=== PATIENT | male | born 1965 | race Two or more races ===

== ENCOUNTER 2022-12-21 18:13 | Inpatient (IN) | payer MEDICAID ==
[~2022-12-21] VITALS: Ht 162.6 cm; Wt 57.2 kg
[2022-12-22 00:08] LABS: CHLORIDE 89 mEq/L (98-107)
[2022-12-22 00:11] LABS: BASOPHILS % 1.3 % (0.0-2.0); EOSINOPHILS % 0.3 % (0.0-5.0); HEMATOCRIT. 34.3 % (42.0-52.0); HEMOGLOBIN. 11.5 g/dL (14.0-18.0); LYMPHOCYTES % 42.8 % (20.0-50.0); MEAN CORPUSCULAR HEMOGLOBIN 34.3 pg (28.0-32.0); MEAN CORPUSCULAR VOLUME 102.3 fL (80.0-94.0); MEAN PLATELET VOLUME 8.3 fl (7.4-10.4); MONOCYTES % 11.1 % (2.0-8.0); NEUTROPHILS % 44.5 % (40.0-76.0); PLATELET 214 x1000/uL (130-400); RED BLOOD CELL COUNT 3.35 mill/uL (4.7-6.1); RED CELL DISTRIBUTION WIDTH 15.8 % (11.6-14.6)
[2022-12-22 00:20] LABS: ETHANOL BLOOD 244 mg/dL
[2022-12-22] MEDS ORDERED: ACETAMINOPHEN 500MG TABLET PO ONE (01:45)
[2022-12-22] MEDS ORDERED: POTASSIUM CHLORIDE 20MEQ TABLET SR PO ONE (02:00)
[2022-12-22] MEDS ORDERED: SODIUM CHLORIDE 0.9% 500 ML IV ONE (02:00)
[2022-12-22] MEDS ORDERED: ASPIRIN 325MG EC TABLET PO ONE (05:45)
[2022-12-22] MEDS ORDERED: POTASSIUM CHLORIDE 20MEQ TABLET SR PO NR (11:00)
[2022-12-22] MEDS ORDERED: ENOXAPARIN 60MG/0.6ML SYR SUBCUT NR (11:15)
[2022-12-22 13:33] LABS: INR 1.1; PROTHROMBIN TIME 11.6 sec (9.6-11.0)
[2022-12-22 14:28] VITALS: BP 110/78
[2022-12-22 16:00] VITALS: BP 148/84
[2022-12-22] MEDS ORDERED: IPRATROPIUM/ALBUTEROL 0.5-3(2.5)MG/3ML NEB NEB PRN (16:00)
[2022-12-22] MEDS ORDERED: ALBUTEROL (0.083%) 2.5MG/3ML NEB HHN PRN ×2 (16:00→16:15)
[2022-12-22] MEDS ORDERED: CLONIDINE 0.1MG TABLET PO PRN (16:00)
[2022-12-22] MEDS ORDERED: IPRATROPIUM BROMIDE (0.02%) 0.5MG/2.5ML NEB HHN PRN ×2 (16:00→16:15)
[2022-12-22] MEDS ORDERED: LORAZEPAM 2MG/ML CPJ IV PRN ×2 (16:00)
[2022-12-22] MEDS ORDERED: ACETAMINOPHEN 325MG TABLET PO PRN (16:00)
[2022-12-22] MEDS ORDERED: ENOXAPARIN 40MG/0.4ML SYR SUBCUT SCH (16:00)
[2022-12-22] MEDS ORDERED: ONDANSETRON HCL 4MG/2ML INJ IV PRN (16:00)
[2022-12-22] MEDS: SODIUM CHLORIDE 0.9% 1,000 ML IV SCH (16:39)
[2022-12-22] MEDS ORDERED: FOLIC ACID 1 MG, THIAMINE HCL 100 MG, MVI, ADULT NO.1 10 ML in DEXTROSE 5% WATER 1,000 ML IV ONE ×4 (17:00)
[2022-12-22] MEDS ORDERED: FAMOTIDINE 20MG/2ML VIAL IV SCH (17:00)
[2022-12-22 18:03] LABS: HEMATOCRIT. 32.3 % (42.0-52.0); HEMOGLOBIN. 10.8 g/dL (14.0-18.0); MEAN CORPUSCULAR HEMOGLOBIN 34.3 pg (28.0-32.0); MEAN CORPUSCULAR VOLUME 102.6 fL (80.0-94.0); MEAN PLATELET VOLUME 9.1 fl (7.4-10.4); PLATELET 201 x1000/uL (130-400); RED BLOOD CELL COUNT 3.15 mill/uL (4.7-6.1); RED CELL DISTRIBUTION WIDTH 15.4 % (11.6-14.6)
[2022-12-22 18:08] LABS: CHLORIDE 95 mEq/L (98-107)
[2022-12-22 20:00] VITALS: BP 136/86
[2022-12-22] MEDS: ENOXAPARIN 60MG/0.6ML SYR SUBCUT SCH (21:23)
[2022-12-22 22:01] LABS: PLATELET ESTIMATE NORMAL
[2022-12-22] MEDS: PANTOPRAZOLE SODIUM 40 MG/VIAL IV SCH (22:54)
[2022-12-23] VITALS: BP 141/78
[2022-12-23 00:04] LABS: CREATINE KINASE 115 IU/L (39-308); CREATINE KINASE MB FRACTION < 1.0 ng/mL (0.5-3.6)
[2022-12-23 04:00] VITALS: BP 120/60
[2022-12-23 06:38] LABS: HEMATOCRIT. 31.2 % (42.0-52.0); HEMOGLOBIN. 10.7 g/dL (14.0-18.0); MEAN CORPUSCULAR VOLUME 102.2 fL (80.0-94.0); MEAN PLATELET VOLUME 8.9 fl (7.4-10.4); PLATELET 180 x1000/uL (130-400); RED BLOOD CELL COUNT 3.06 mill/uL (4.7-6.1); RED CELL DISTRIBUTION WIDTH 15.9 % (11.6-14.6)
[2022-12-23 06:55] LABS: CHLORIDE 97 mEq/L (98-107)
[2022-12-23 07:08] LABS: CREATINE KINASE 98 IU/L (39-308); CREATINE KINASE MB FRACTION < 1.0 ng/mL (0.5-3.6)
[2022-12-23 08:00] VITALS: BP 148/99
[2022-12-23] MEDS: ENOXAPARIN 60MG/0.6ML SYR SUBCUT SCH ×2 (09:33→20:44)
[2022-12-23] MEDS: PANTOPRAZOLE SODIUM 40 MG/VIAL IV SCH (09:33)
[2022-12-23] MEDS ORDERED: POTASSIUM CHLORIDE 20MEQ TABLET SR PO NR (09:45)
[2022-12-23] MEDS ORDERED: MAGNESIUM 4 G PREMIX 100 ML IV NR (10:00)
[2022-12-23 12:00] VITALS: BP 133/89
[2022-12-23 12:26] LABS: PLATELET ESTIMATE NORMAL
[2022-12-23 16:00] VITALS: BP 148/97
[2022-12-23] MEDS: SODIUM CHLORIDE 0.9% 1,000 ML IV SCH (17:56)
[2022-12-23 20:00] VITALS: BP 138/92
[2022-12-24] VITALS: BP 129/80
[2022-12-24 04:00] VITALS: BP 150/87
[2022-12-24 06:25] LABS: EOSINOPHILS % 1.3 % (0.0-5.0); HEMATOCRIT. 29.1 % (42.0-52.0); LYMPHOCYTES % 17.3 % (20.0-50.0); MEAN CORPUSCULAR HEMOGLOBIN 35.3 pg (28.0-32.0); MEAN CORPUSCULAR VOLUME 103.4 fL (80.0-94.0); MEAN PLATELET VOLUME 8.9 fl (7.4-10.4); MONOCYTES % 14.6 % (2.0-8.0); NEUTROPHILS % 65.8 % (40.0-76.0); PLATELET 165 x1000/uL (130-400); RED BLOOD CELL COUNT 2.82 mill/uL (4.7-6.1); RED CELL DISTRIBUTION WIDTH 15.6 % (11.6-14.6)
[2022-12-24 08:00] VITALS: BP 150/91
[2022-12-24] MEDS: SODIUM CHLORIDE 0.9% 1,000 ML IV SCH (08:00)
[2022-12-24 08:31] LABS: CHLORIDE 104 mEq/L (98-107)
[2022-12-24] MEDS: ENOXAPARIN 60MG/0.6ML SYR SUBCUT SCH (08:53)
[2022-12-24] MEDS ORDERED: FAMOTIDINE 20MG TABLET PO SCH (09:00)
[2022-12-24 12:00] VITALS: BP 132/75
[2022-12-24] MEDS ORDERED: LISI10TA26 MT (12:14)
[2022-12-24] MEDS ORDERED: APIX5TAB MT (12:14)
[2022-12-24] MEDS ORDERED: COR3 MT (12:14)
[2022-12-24] MEDS ORDERED: THIA100T88 MT (12:15)
[2022-12-24] MEDS ORDERED: PROT40 MT (12:15)
[2022-12-24 13:12] VITALS: BP 132/75
== END 2022-12-24 14:39 | disposition home or self-care (01) | DRG 243 ==
LOC: ER 18:13 → 7WST 12-22 04:03
PROVIDERS: ADMIT Internal Medicine; ATTEND Internal Medicine
DX: K21.9 Gastro-esophageal reflux disease without esophagitis (principal); I50.21 Acute systolic (congestive) heart failure; E87.1 Hypo-osmolality and hyponatremia; E87.6 Hypokalemia; I48.0 Paroxysmal atrial fibrillation; E86.1 Hypovolemia; I11.0 Hypertensive heart disease with heart failure; R07.89 Other chest pain; K29.20 Alcoholic gastritis without bleeding; Z20.822 Contact with and (suspected) exposure to COVID-19; R74.01 Elevation of levels of liver transaminase levels; F10.229 Alcohol dependence with intoxication, unspecified; F17.210 Nicotine dependence, cigarettes, uncomplicated; Z91.199 Patient's noncompliance with other medical treatment and regimen due to unspecified reason
CPT/HCPCS: 36415; 71045; 76705; 80048; 80053; 80061; 80320; 82550; 82553; 83735; 83880; 84484; 85025; 87426; 93005; 93306; 99285; C9113; J1650; J3411; J3475; J3490; J7030; J7070; G0480